=== PATIENT | male | born 1985 | race Hispanic/Latino ===

== ENCOUNTER 2018-05-12 15:48 | Emergency (ER) | payer MEDICAID, SELFPAY ==
--- NOTE | 2018-05-12 16:25 | RAD ---
2 VIEWS CHEST: Date: 05/12/18 COMPARISON: None. HISTORY: Shortness of breath after inhaling wood dust and dyspnea. FINDINGS: Two views of the chest show normal sized cardiomediastinal silhouette. There is no evidence of consol idation, mass, or pleural effusion. The bones are unremarkable. IMPRESSION: No evidence of acute cardiopulmonary disease. POS: [facility]
[2018-05-12] MEDS ORDERED: Ondansetron PF 4 MG/2 ML Vial ONE (16:44)
[2018-05-12] MEDS ORDERED: Lidocaine Viscous Sol 2% 15 ml UD Cup ONE (16:45)
[2018-05-12] MEDS ORDERED: Mag-Al Plus 1200 MG/1200 MG/120 MG/30 ML UDCUP ONE (16:45)
== END 2018-05-12 18:09 | disposition home or self-care (01) ==
LOC: NAV ERS 15:48
DX: J45.909 Unspecified asthma, uncomplicated (principal); Z79.899 Other long term (current) drug therapy
CPT/HCPCS: 71046; 96374; J2405